=== PATIENT | male | born 1985 | race Caucasian/White ===

== ENCOUNTER 2018-11-14 07:05 | Emergency (ER) | payer OTHER ==
[~2018-11-14] VITALS: Ht 182.8 cm; Wt 129.3 kg
[2018-11-14] MEDS ORDERED: LOTRISONE 0.05%15 GM PO (08:41)
[2018-11-14] MEDS ORDERED: MEDROL DOSEPAK4 MG PO (08:41)
== END 2018-11-14 08:54 | disposition home or self-care (01) ==
LOC: ED 07:05
DX: B35.4 Tinea corporis (principal); M54.9 Dorsalgia, unspecified; M79.604 Pain in right leg; M79.605 Pain in left leg; Z88.2 Allergy status to sulfonamides; Z88.1 Allergy status to other antibiotic agents; Z91.040 Latex allergy status; Z88.6 Allergy status to analgesic agent